=== PATIENT | female | born 1995 | race Caucasian/White ===

== ENCOUNTER 2020-06-14 17:41 | Emergency (ER) | payer OTHER ==
[~2020-06-14] VITALS: Ht 167.6 cm; Wt 70.0 kg
[2020-06-14 19:32] VITALS: BP 107/65
== END 2020-06-14 20:00 | disposition left against medical advice (07) ==
LOC: ER 17:41
DX: R79.89 Other specified abnormal findings of blood chemistry (principal); Z53.21 Procedure and treatment not carried out due to patient leaving prior to being seen by health care provider